=== PATIENT | male | born 1975 | race Caucasian/White ===

== ENCOUNTER 2023-11-01 10:49 | Day surgery (SDC) | payer OTHER ==
[2023-11-01] MEDS: SODIUM CHLORIDE 0.9% 1,000 ML IV SCH (11:19)
[2023-11-01] MEDS: IV FLUID CONTINUATION 1,000 ML IV ONE (11:19)
[2023-11-01] MEDS ORDERED: MIDAZOLAM 2 MG/2 ML VIAL ONE (13:21)
[2023-11-01] MEDS ORDERED: ISOPROTERENOL 250 MCG/1.25 ML SYR IV ONE (13:21)
[2023-11-01] MEDS ORDERED: fentaNYL (PF) 50 MCG/ML 2 ML AMP ONE (13:21)
[2023-11-01] MEDS ORDERED: LIDOCAINE 1% INJ 10MG/ML (20 ML MDV) ONE ×2 (13:35→13:53)
[2023-11-01] MEDS: LIDOCAINE 1% INJ 10MG/ML (20 ML MDV) SQ ONE (13:49)
[2023-11-01 14:16] LABS: ALT 96 U/L (4-49); AST 46 U/L (17-59); African American GFR (CKD) >90 (>60 ml/min/1.73 sqM); Albumin 5.5 g/dL (3.5-5.0); Alkaline Phosphatase 69 U/L (38-126); Anion Gap 10 mmol/L; Blood Urea Nitrogen 16 mg/dL (9-20); Calcium 10.5 mg/dL (8.4-10.2); Carbon Dioxide 26 mmol/L (22-30); Chloride 105 mmol/L (98-107); Glucose 92 mg/dL (74-99); Non-African American GFR(CKD) >90 (>60 ml/min/1.73 sqM); Potassium 4.4 mmol/L (3.5-5.1); Sodium 141 mmol/L (137-145); Total Protein 8.6 g/dL (6.3-8.2)
[2023-11-01] MEDS: HEPARIN SODIUM (1,000 UNIT/ML) 1,000 UNIT in SODIUM CHLORIDE 0.9% 1,000 ML IRRIGATION ONE (15:05)
[2023-11-01] MEDS: ADENOSINE 3 MG/ML 4 ML VIAL ONE ×2 (16:02→16:04)
[2023-11-01] MEDS ORDERED: ACETAMINOPHEN TAB 325 MG TAB PO PRN (16:41)
--- NOTE | 2023-11-01 16:49 | P.HPCAR ---
History of Present Illness This is Dr. 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 EXAMINATION: 184/104 mmHg pulse rate 79 beats a minute afebrile Breath sounds are clear no rhonchi no crackles No JVD Heart sounds are normal no murmurs no gallop Extremities are warm no edema REVIEW OF LABS, ECG & MEDICAL DATA Sodium 141 potassium 4.4 BUN 16 creatinine 0.84 AST and is 46 ALT 96 Alkaline phosphatase normal TSH normal 2.3 Physical Exam Vitals: Vital Signs Temp Pulse Resp BP Pulse Ox 11/01/23 11:13 97.9 F 79 18 184/104 98 Intake and Output 11/01/23 11/01/23 11/01/23 06:59 14:59 22:59 Intake Total 100 251 Balance 100 251 Intake: IV 100 251 Other: Weight 84.6 kg Past Medical History Past Medical History: Hypertension, Osteoarthritis (OA), Supraventricular Tachycardia (SVT) Additional Past Medical History / Comment(s): See Dr. Campbell's H&P; elevated cholesterol- no meds yet. History of Any Multi-Drug Resistant Organisms: None Reported Past Surgical History: Orthopedic Surgery Additional Past Surgical History / Comment(s): left thumb surg with screws and pins Past Anesthesia/Blood Transfusion Reactions: No Reported Reaction Smoking Status: Former smoker Physical Examination Vital Signs Temp Pulse Resp BP Pulse Ox 11/01/23 11:13 97.9 F 79 18 184/104 98 Intake and Output 11/01/23 11/01/23 11/01/23 06:59 14:59 22:59 Intake Total 100 251 Balance 100 251 Intake: IV 100 251 Other: Weight 84.6 kg Results 11/01/23 11:00 Cardiac Enzymes 11/01/23 Range/Units 11:00 AST 46 (17-59) U/L Comprehensive Metabolic Panel 11/01/23 Range/Units 11:00 Sodium 141 (137-145) mmol/L Potassium 4.4 (3.5-5.1) mmol/L Chloride 105 (98-107) mmol/L Carbon Dioxide 26 (22-30) mmol/L BUN 16 (9-20) mg/dL Creatinine 0.84 (0.66-1.25) mg/dL Glucose 92 (74-99) mg/dL Calcium 10.5 H (8.4-10.2) mg/dL AST 46 (17-59) U/L ALT 96 H (4-49) U/L Alkaline Phosphatase 69 (38-126) U/L Total Protein 8.6 H (6.3-8.2) g/dL Albumin 5.5 H (3.5-5.0) g/dL Current Medications Generic Name Dose Route Start Last Admin Trade Name Freq PRN Reason Stop Dose Admin Acetaminophen 650 mg 11/01/23 16:41 Acetaminophen Tab 325 Mg Tab PO Q6HR PRN Mild Pain (Scale 1 to 3) Amlodipine Besylate 10 mg 11/02/23 09:00 Amlodipine 10 Mg Tab PO DAILY REESE Sodium Chloride 1,000 mls @ 20 mls/hr 11/01/23 05:54 11/01/23 11:19 Saline 0.9% IV 12/01/23 05:55 20 mls/hr .Q24H REESE Administration Acetaminophen 1,000 mg/ IV 100 mls @ 400 mls/hr 11/01/23 16:41 Solution IVPB 11/01/23 16:55 ONCE ONE Losartan Potassium 50 mg 11/02/23 09:00 Losartan 50 Mg Tab PO DAILY REESE Sodium Chloride 12 ml 11/01/23 16:41 Sodium Chloride 0.9% Flush 10 Ml Syringe IV Q12HR PRN Line Flush Intake and Output 11/01/23 11/01/23 11/01/23 06:59 14:59 22:59 Intake Total 100 251 Balance 100 251 Intake: IV 100 251 Other: Weight 84.6 kg Patient Weight 11/02/23 06:59 Weight 84.6 kg 11/01/23 11:00
--- NOTE | 2023-11-01 16:53 | P.PRLE ---
RE: Yordan Redd Dear Demarcus Farr underwent a diagnostic EP study which revealed an accessory pathway outside and anterior to the coronary sinus os, at the junction between the os of the coronary sinus and the middle cardiac vein Successful ablation was performed and there was no evidence for accessory pathway conduction at the end of the procedure However, it is quite likely that he will continue to have episodes of atrial tachycardia,( nonsustained) which he may feel. However in the absence of an accessory pathway, the risk of any untoward events is almost negligible. Once his atrial tachycardia and atrial fibrillation become more frequent then they should be targeted for an ablation He will continue his antihypertensive therapy for now and follow-up with you and Dr. King as before Thank you for entrusting me with the care of the patient Warm regards Sincerely Gino Campbell
[2023-11-01] MEDS: LACTATED RINGERS 1,000 ML IV SCH (17:02)
--- NOTE | 2023-11-01 17:02 | P.EPPROC ---
- EP Procedure Note Electrophysiology Procedure Note: Diagnosis Inferior septal accessory pathway on twelve-lead EKG Recurrent palpitations, symptomatic Normal TSH Hypertension LV function in the lower limits of normal with increased LV trabeculation Final diagnosis accessory pathway just outside the anterior coronary sinus os, at the junction between the CS os and the middle cardiac vein. No evidence for orthodromic or antidromic reentry However a very rapidly conducting accessory pathway, antegradely with accessory pathway conduction at pacing rates faster than 230 ms Plan Patient obviously will continue to have palpitations related to atrial tachycardia or atrial fibrillation but will not conduct down the accessory pathway Once his atrial tachycardia or atrial fibrillation becomes sustained and problematic then they should be targeted for ablation Continue management of hypertension and watch LV function, patient has a trabecu lated LV with ejection fraction of the lower limits of normal Details Patient was brought to the EP lab in a fasting state. Written informed consent was obtained prior to the procedure. Venous sheaths were placed in the right left femoral veins and diagnostic catheters were positioned in the right heart The twelve-lead EKG at baseline showed negatively oriented delta waves in lead III and aVF, isoelectric delta waves in lead II and negatively oriented in V1 with a transition to positivity in V2 itself Sinus cycle length greater than 800 ms, ND interval 146 ms, QRS 127 ms and QT 346 ms AH 95 and HV interval for short rate 22 ms Sinus node recovery times were 1063 1145 and 1029 ms. AV node Wenckebach block 260 ms. Accessory pathway block 216 ms, almost simultaneous block No VA conduction the baseline state but on Isopril VA conduction was noted Isopril was then started wide open and high doses and then at 2 mics followed by 1 patria On Isopril VA Wenckebach block at 320 ms. The retrograde conduction was midline and decremental AV node Wenckebach block less than 230 ms Atrial extra stimulation was performed from the high right atrium and double extrastimuli delivered from the coronary sinus The delta waves were more apparent when pacing from the right atrium as opposed to the coronary sinus A Penta ray catheter was placed and this resulted in a significant diminution in the abnormality of the EKG with very subtle residual delta waves noted once the Penta ray catheter was placed into the coronary sinus Likely representing transient mechanical bump of the accessory pathway, partial However after waiting for about 15 to 20 minutes there was some subtle evidence for antegrade accessory pathway conduction and therefore mapping was performed with an ablation catheter instead The coronary sinus was mapped the coronary sinus os and the middle cardiac vein was mapped Continuous activity was noted at the os of the coronary sinus near his junction with the middle cardiac vein. However it was at a just outside the coronary sinus os and not within the middle cardiac vein Differential pacing was performed from the high right atrium area as well as from the coronary sinus to confirm the location Delta waves are more obvious when pacing from the high right atrium IV adenosine up to 12 mg was given to confirm the accuracy of the map during atrial pacing The earliest site seem to split in a Y-shaped pattern to the middle cardiac vein and 2 with coronary sinus RF ablation was then performed at this site and accessory pathway conduction was completely abolished Extra RF lesions were applied at the site where there was loss of accessory other conduction Thereafter we waited for about 20 minutes for any recovery of accessory pathway signals There was no recovery of accessory pathway conduction All catheters were removed Vascade closure device applied and the patient was transferred back to telemetry Atrial rhythm procedure well without any acute complications
[2023-11-01] MEDS: ACETAMINOPHEN IV (For NPO) 1,000 MG in EMPTY BAG 1 BAG IVPB ONE (17:04)
[2023-11-01] MEDS: SODIUM CHLORIDE 0.9% 1,000 ML IV ONE (20:39)
[2023-11-02] MEDS ORDERED: amLODIPine 10 MG TAB PO SCH (09:00)
[2023-11-02] MEDS: LOSARTAN 50 MG TAB PO SCH (09:29)
[2023-11-02] MEDS: carvediloL 3.125 MG TAB PO SCH (09:32)
[2023-11-02 10:26] VITALS: BP 154/88; PULSE 69; RESP 15; TEMP 98.2
--- NOTE | 2023-11-02 11:16 | P.DS ---
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 HPI Patient continues to experience episodes of palpitations He has an abnormal EKG with an inferior septal pathway on the right side No recent loss of consciousness Patient denies having any chest pain or shortness of breath. EXAMINATION: 154/88 mmHg pulse rate 69 beats a minute afebrile Breath sounds are clear no rhonchi no crackles No JVD Heart sounds are normal no murmurs no gallop Extremities are warm no edema REVIEW OF LABS, ECG & MEDICAL DATA Sodium 141 potassium 4.4 BUN 16 creatinine 0.84 AST and is 46 ALT 96 Alkaline phosphatase normal TSH normal 2.3 Nurse practitioner note has been reviewed, I agree with documented findings and plan of care. Patient was seen and examined. Plan - Discharge Summary Discharge Rx Participant: No New Discharge Prescriptions: Continue Losartan Potassium 50 mg PO DAILY amLODIPine 10 mg PO DAILY Discharge Medication List Losartan Potassium 50 mg PO DAILY 10/28/23 [History] amLODIPine 10 mg PO DAILY 10/28/23 [History] Follow up Appointment(s)/Referral(s): Gino Campbell MD [STAFF PHYSICIAN] - 11/09/23 3:15 pm Activity/Diet/Wound Care/Special Instructions: Post EP study - Ablation instructions 1. Keep access sites dry for 2 days. 2. No heavy lifting or straining for 2 days. 3. Avoid bending the hips repeatedly for 2 days. 4. You may go up and down stairs slowly Call if the following is noted 1. Bleeding, increasing swelling or pain at the access sites. 2. Increasing chest discomfort, especially upon taking a deep breath. 3. Increasing shortness of breath, at rest or with exertion. 4. Undue cough / phlegm 5. Difficulty or pain while swallowing. 6. Pain or change in color in the extremities. 7. Fever, chills, rigors. 8. Increasing headache or neurologic symptoms. 9. Dizziness, fainting, palpitations Discharge Disposition: HOME SELF-CARE
== END 2023-11-02 11:45 | disposition home or self-care (01) ==
LOC: CATHEP 10:49 → 6NMEDSUR 16:28 → CATHEP 11-02 11:45
PROVIDERS: ATTEND Internal Medicine Clinical Cardiac Electrophysiology
DX: I47.10 Supraventricular tachycardia, unspecified (principal); E78.00 Pure hypercholesterolemia, unspecified; I10 Essential (primary) hypertension; M19.90 Unspecified osteoarthritis, unspecified site; Z87.891 Personal history of nicotine dependence; Z79.899 Other long term (current) drug therapy
CPT/HCPCS: 93623; 93653; 86900; 86901; 80053; 84443; 86850; C1894; C1769; C1760; C1730 ×3; C1731; C1732; J2001; J1644; J0153; J0131

== ENCOUNTER → 2024-06-14 | Outpatient (CLI) | payer OTHER ==
--- NOTE | 2024-06-14 14:29 | XR ---
EXAMINATION TYPE: XR abdomen 1V DATE OF EXAM: 06/14/2024 2:18 PM COMPARISON: None CLINICAL INDICATION: Male, 49 years old with history of K59.00; H TECHNIQUE: One radiographic view of the abdomen was obtained. FINDINGS: There is a large stool burden, otherwise, the bowel gas pattern is nonspecific without dila puja loops of small or large bowel. . Fecal material and gas are demonstrated throughout the colon and rectum. There is no evidence for organomegaly or pneumoperitoneum. No acute osseous process. Large stool burden throughout the abdomen. IMPRESSION: Nonspecific bowel gas pattern without radiographic evidence for acute process. [facility], , 06/14/2024 2:26 PM
== END | disposition home or self-care (01) ==
LOC: RADXRMAIN 14:03
DX: K59.00 Constipation, unspecified (principal)
CPT/HCPCS: 74018